=== PATIENT | female | born 2000 | race Caucasian/White ===

== ENCOUNTER 2018-07-25 01:15 | Emergency (ER) | payer OTHER ==
[~2018-07-25] VITALS: Ht 160 cm; Wt 104.3 kg
[2018-07-25 02:25] VITALS: BP 159/92; TEMP 98.1
== END 2018-07-25 02:28 | disposition home or self-care (01) ==
LOC: ED 01:15
DX: S90.111A Contusion of right great toe without damage to nail, initial encounter (principal); W22.8XXA Striking against or struck by other objects, initial encounter
CPT/HCPCS: 99282

== ENCOUNTER 2021-03-19 21:23 | Emergency (ER) | payer OTHER | END 2021-03-19 22:05 | disposition home or self-care (01) | LOC: ED 21:23 | DX: U07.1 COVID-19 (principal) | CPT/HCPCS: 99281 ==